=== PATIENT | female | born 1990 | race African-American/Black ===

== ENCOUNTER 2018-02-19 00:47 | Emergency (ER) | payer SELFPAY ==
[~2018-02-19 00:47] MED LIST: IBUPROFEN600 MG PO; NKM
--- NOTE | 2018-02-19 01:28 | Emergency Room Report ---
History of Present Illness General Chief Complaint: To Be Triaged Present Illness HPI This patient is 18 weeks complaining of lower abdominal pain. She left shortly after triage. I did not see this patient. Allergies: Coded Allergies: No Known Allergies (Unverified , 11/23/12) Medical Decision Making Diagnostic Impression: Primary Impression: Abdominal pain Disposition: LEFT W/OUT BEING SEEN BRAYAN LUNDBERG M.D. Feb 19, 2018 01:28
== END 2018-02-19 01:03 | disposition left against medical advice (07) ==
LOC: EMR 01:03
DX: R10.30 Lower abdominal pain, unspecified (principal); Z53.21 Procedure and treatment not carried out due to patient leaving prior to being seen by health care provider
CPT/HCPCS: 99281